=== PATIENT | female | born 1995 | race Caucasian/White ===

== ENCOUNTER 2017-03-09 06:38 | Emergency (ER) | payer OTHER, MEDICAID ==
[2017-03-09] MEDS: DICYCLOMINE 10 MG CAP PO (07:37)
[2017-03-09] MEDS: ONDANSETRON (ODT) 4 MG TAB ODT (07:37)
== END 2017-03-09 09:04 | disposition home or self-care (01) ==
LOC: FTE 09:04
DX: R11.10 Vomiting, unspecified (principal); R19.7 Diarrhea, unspecified
CPT/HCPCS: 99283